=== PATIENT | male | born 1995 | race Two or more races ===

== ENCOUNTER → 2018-12-27 | Emergency (ER) | payer BC, MEDICAID ==
[~2018-12-27] VITALS: Ht 167.6 cm; Wt 81.6 kg
[~2018-12-27] MED LIST: BACTRIM DS TAB1 EAC1 ORAL; CEPHALEXIN500 MG ORAL
--- NOTE | 2018-12-27 11:30 | NUR ---
ED Nurse Note: Pt came in due to left hand swelling and possible infection x half a week. Denies trauma or insect bite. AAO x,4 ambulatory. No itchiness. Pt applied neosporin over the counter medication.
[2018-12-27 11:32] VITALS: BP 135/76
--- NOTE | 2018-12-27 11:52 | Emergency Room Report ---
History of Present Illness General Chief Complaint: Skin Rash/Abscess Source: Patient Present Illness HPI Patient is a 23-year-old male presents after increased left hand pain and swelling. Patient had recent tattoo placement to the left hand. He stated he noticed increased pain to multiple areas. He denies any fever. He had been using Neosporin. He reports having multiple areas of discomfort. He states he has had tattoos in the past and used Neosporin without any problems. Allergies: Coded Allergies: No Known Allergies (Unverified , 12/27/18) Patient History Past Medical History: see triage record Reviewed Nursing Documentation: PMH: Agreed; PSxH: Agreed Nursing Documentation-PMH Past Medical History: No Stated History Review of Systems All Other Systems: negative except mentioned in HPI Physical Exam Vital Signs Date Time Temp Pulse Resp B/P (MAP) Pulse Ox O2 Delivery O2 Flow Rate FiO2 12/27/18 11:17 98.2 74 20 138/83 (101) 98 Room Air General Appearance: well appearing, no apparent distress, alert, GCS 15 Head: normocephalic, atraumatic ENT: hearing grossly normal, normal voice Neck: full range of motion, supple Respiratory: no respiratory distress, speaking full sentences Neurologic: normal inspection, alert, oriented x3, responsive, normal gait Psychiatric: mood/affect normal Skin: other - left hand multiple discreet lesion to left hand Medical Decision Making Diagnostic Impression: Primary Impression: Skin lesion of hand Additional Impression: Cellulitis ER Course Patient presented for left hand pain. Differential diagnosis include was not limited to cellulitis, abscess, contact dermatitis among others. Patient has a benign exam and does not appear to require any further imaging or laboratory testing at this time. Patient was noted to have several discrete lesions to his left hand which appear to be early abscess /cellulitis. There does not appear to be any lesion amenable to drainage at this time. This may alternatively be a contact allergy to Neosporin and patient was advised to discontinue any use of Neosporin. Patient was given prescription for Bactrim and Keflex. He is advised to have the wound rechecked in 2 days for possible incision and drainage. Patient was given a note for work. He is advised to return if worse Last Vital Signs Date Time Temp Pulse Resp B/P (MAP) Pulse Ox O2 Delivery O2 Flow Rate FiO2 12/27/18 11:32 98.3 82 16 135/76 99 Room Air Status: improved Scripts Trimethoprim/Sulfamethoxazole 160/800* (BACTRIM DS TABLET*) 1 Each Tablet 1 TAB ORAL Q12H, #14 TAB 0 Refills Prov: Isaiah Queen MD 12/27/18 Cephalexin* (KEFLEX*) 500 Mg Capsule 500 MG ORAL EVERY 6 HOURS, #28 CAP Prov: Isaiah Queen MD 12/27/18 Isaiah Queen MD Dec 27, 2018 11:52
[2018-12-27 11:58] VITALS: BP 132/70
--- NOTE | 2018-12-27 11:58 | NUR ---
ER DISCHARGE NOTE: Patient is cleared to be discharged per ERMD, pt is aox4, on room air, with stable vital signs. pt was given dc and prescription instructions, pt was able to verbalize understanding, pt id band removed. pt is able to ambulate with steady gait. pt took all belongings.
== END | disposition home or self-care (01) ==
LOC: EMR 12:12
DX: L03.114 Cellulitis of left upper limb (principal); L98.9 Disorder of the skin and subcutaneous tissue, unspecified
CPT/HCPCS: 99282